=== PATIENT | female | born 1970 | race Caucasian/White ===

== ENCOUNTER → 2017-03-15 | Outpatient (CLI) | payer SELFPAY ==
--- NOTE | 2017-03-15 18:45 | MR ---
EXAMINATION TYPE: MR brain wo/w con DATE OF EXAM: 03/15/2017 6:19 PM COMPARISON: Outside brain MRI April 17, 2015. Outside MRI report not available HISTORY: Rt sided weakness TECHNIQUE: Multiplanar, multisequence images of the brain and brainstem is performed without and with IV contras t, utilizing 15 mL intravenous MultiHance . FINDINGS: Diffusion weighted images demonstrate no evidence of a recent infarct or other diffusion ab normality. There is no worrisome extra-axial fluid collection. The ventricular system and cisternal spaces are normal in size and appearance. The brain volume is age appropriate. There is new 6 mm ov al T1 hypointense and T2 hyperintense lesion right perry radiata on axial image 22 and sagittal imag e 13 measuring 9 mm in craniocaudal length Midline structures demonstrate normal morphology. The craniocervical junction appears within normal limits. Post contrast images demonstrate no abnormal enhancement. The dural venous sinuses appear pa tent. The visualized sinuses are clear and the globes are intact. IMPRESSION: New nonspecific single white matter ovoid lesion right perry radiata otherwise unremarka ble study.
== END | disposition home or self-care (01) ==
LOC: RADMRIMAIN 17:22
PROVIDERS: ATTEND Family Medicine
DX: G93.89 Other specified disorders of brain (principal); R53.1 Weakness
CPT/HCPCS: 70553; A9577